=== PATIENT | male | born 1980 | race Caucasian/White ===

== ENCOUNTER 2019-12-21 20:49 | Emergency (ER) | payer OTHER ==
[~2019-12-21] VITALS: Ht 182.9 cm; Wt 104.3 kg
[~2019-12-21 20:49] MED LIST: NOHOMEMEDICATIONS; PROMETHAZINE-C120 ML PO; ZPAK PO
[2019-12-21 21:08] LABS: HCO3 18.1 mmol/L (22.0-26.0); PCO2 VENOUS 32.4 mmHg (41.0-51.0); PO2 VENOUS 55.6 mmHg (35.0-45.0)
[2019-12-21 22:07] VITALS: BP 121/68
--- NOTE | 2019-12-22 08:19 | EKG ---
[facility] [place] [address] ELECTROCARDIOGRAM REPORT Name: KIA QURESHI Room #: DEP [facility]#: [id number] Admission: 12/21/19 Attend Phys: Discharge: 12/21/19 Date of : 82 Report #: [id number] THIS REPORT FOR: cc: ARASH - Emilie family physician/PCP ARASH - Emilie family physician/PCP Lee Carlson MD [facility] THIS REPORT FOR: //name// [facility] ED Test Date: 2019-12-21 Test Time: 20:53:15 Pat Name: KIA QURESHI Department: Room: Gender: Director Of Public Relations: : 1980 Requested By: Barbara Jane Order Number: [id number] MD: Lee Carlson Measurements Intervals [place] Rate: 99 P: 40 [place]: 172 QRS: 56 QRSD: 87 T: 27 QT: 337 QTc: 433 Interpretive Statements Sinus rhythm Normal tracing No previous ECG available for comparison Electronically Signed On 12-22-2019 8:18:21 [employer] by Lee Carlson [email or web address] <ELECTRONICALLY SIGNED> By: Lee Carlson MD, [facility] 12/22/1917 52 52 Lee Carlson MD, FACC /EPI
== END 2019-12-21 22:08 | disposition home or self-care (01) ==
LOC: ER 20:49
PROVIDERS: Emergency Medicine
DX: T67.5XXA Heat exhaustion, unspecified, initial encounter (principal); R42 Dizziness and giddiness; R51 Headache; Z88.1 Allergy status to other antibiotic agents; X00.0XXA Exposure to flames in uncontrolled fire in building or structure, initial encounter; Y93.89 Activity, other specified; Y92.89 Other specified places as the place of occurrence of the external cause; Y99.8 Other external cause status